=== PATIENT | male | born 1995 | race Two or more races ===

== ENCOUNTER 2020-02-11 23:08 | Emergency (ER) | payer MEDICAID ==
[~2020-02-11] VITALS: Ht 175.3 cm; Wt 77.1 kg
[2020-02-11 23:47] VITALS: BP 148/88
[2020-02-12] MEDS ORDERED: KETOROLAC TROMETH 60MG/2ML VIAL IM ONE (01:15)
== END 2020-02-12 02:12 | disposition home or self-care (01) ==
LOC: ER 23:08
DX: M54.32 Sciatica, left side (principal)
CPT/HCPCS: 72100; 72170; 96372; 99284; J1885

== ENCOUNTER 2021-01-21 22:37 | Emergency (ER) | payer MEDICAID, OTHER ==
[~2021-01-21] VITALS: Ht 165.1 cm; Wt 77.1 kg
[2021-01-22] MEDS ORDERED: BACITRACIN TOP OINT 1 UD PKG TOP ONE (02:30)
[2021-01-22 02:56] VITALS: BP 134/92
== END 2021-01-22 02:50 | disposition home or self-care (01) ==
LOC: ER 22:37
DX: S82.831A Other fracture of upper and lower end of right fibula, initial encounter for closed fracture (principal); S82.51XA Displaced fracture of medial malleolus of right tibia, initial encounter for closed fracture; S01.112A Laceration without foreign body of left eyelid and periocular area, initial encounter; W18.39XA Other fall on same level, initial encounter; Y93.89 Activity, other specified; Y92.89 Other specified places as the place of occurrence of the external cause; Y99.8 Other external cause status
CPT/HCPCS: 12013; 29515; 70450; 73610